=== PATIENT | female | born 1955 | race Caucasian/White ===

== ENCOUNTER 2017-10-11 13:39 | Emergency (ER) | payer OTHER ==
[~2017-10-11] VITALS: Ht 160 cm; Wt 52.2 kg
[2017-10-11] MEDS ORDERED: HYDROCODONE/APAP 5/325MG 1 EACH TABLET ONE (15:25)
[2017-10-11] MEDS ORDERED: HYDROCODONE/APAP 5/325MG 1 EACH TABLET PO ONE (15:30)
[2017-10-11 17:23] VITALS: BP 102/75
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
--- NOTE | 2017-10-11 17:25 | NUR ---
Patient discharged to home in stable condition. Written and verbal after care instructions given. Patient verbalizes understanding of instruction. Prescriptions given.
== END 2017-10-11 17:30 | disposition home or self-care (01) ==
LOC: ER 13:44
DX: S09.90XA Unspecified injury of head, initial encounter (principal); M54.5 Low back pain; M25.561 Pain in right knee; M25.511 Pain in right shoulder; Z79.82 Long term (current) use of aspirin; Z98.890 Other specified postprocedural states; V43.52XA Car driver injured in collision with other type car in traffic accident, initial encounter; Y93.89 Activity, other specified; Y92.89 Other specified places as the place of occurrence of the external cause; Y99.8 Other external cause status
CPT/HCPCS: 70450-TC; 71045-TC; 72100-TC; 73030-TC; 73562; A4606; Z7610